=== PATIENT | female | born 2000 | race Caucasian/White ===

== ENCOUNTER 2022-11-29 20:53 | Observation (INO) | payer MEDICAID ==
[~2022-11-29] VITALS: Ht 157.5 cm; Wt 68.0 kg
== END 2022-11-29 22:30 | disposition home or self-care (01) ==
LOC: SPU 20:53
PROVIDERS: ADMIT Obstetrics & Gynecology; ATTEND Obstetrics & Gynecology
DX: O62.9 Abnormality of forces of labor, unspecified (principal); Z3A.37 37 weeks gestation of pregnancy
CPT/HCPCS: 81002; G0378

== ENCOUNTER 2022-12-18 11:51 | Inpatient (IN) | payer MEDICAID ==
[~2022-12-18] VITALS: Ht 157.5 cm; Wt 68.9 kg
[2022-12-18] MEDS ORDERED: OXYTOCIN/0.9 % SODIUM CHLORIDE 1,000 ML IV SCH (16:45)
[2022-12-18] MEDS ORDERED: TERBUTALINE SULFATE 1 MG/ML VIAL SUBCUT ONE (16:45)
[2022-12-18] MEDS ORDERED: LR 1,000 ML IV SCH (16:45)
[2022-12-18] MEDS ORDERED: NALBUPHINE HCL 10 MG/ML AMP IVP PRN (16:45)
[2022-12-18 16:54] VITALS: BP_SYST 111
[2022-12-18 17:22] LABS: BASOPHILS % (AUTO) 0.3 % (0.0-2.0); EOSINOPHILS # (AUTO) 0.3 K/uL (0.0-0.4); EOSINOPHILS % (AUTO) 3.9 % (0.0-4.0); HEMATOCRIT 36.6 % (36-48); HEMOGLOBIN 12.2 g/dL (12.0-16.0); LYMPHOCYTES # (AUTO) 1.8 K/uL (1.0-5.5); LYMPHOCYTES % (AUTO) 20.6 % (20.5-51.5); MEAN CORPUSCULAR HEMOGLOBIN 33 pg (27-31); MEAN CORPUSCULAR HGB CONC 34 % (32-36); MEAN CORPUSCULAR VOLUME 98 fL (79.0-98.0); MONOCYTES # (AUTO) 0.7 K/uL (0.0-1.0); MONOCYTES % (AUTO) 7.7 % (1.7-9.3); NEUTROPHILS % (AUTO) 67.5 % (40.0-70.0); PLATELET COUNT (AUTO) 159 K/uL (130-430); RED BLOOD CELL COUNT(AUTO) 3.72 MIL/uL (4.2-6.2); RED CELL DISTRIBUTION WIDTH 14.3 % (9.0-15.0); WHITE BLOOD COUNT (AUTO) 8.9 K/uL (4.8-10.8)
[2022-12-18] MEDS ORDERED: CALCIUM CARBONATE 500 MG/ TAB.CHEW PO PRN (21:30)
[2022-12-19] MEDS ORDERED: ACETAMINOPHEN 325 MG TABLET PO PRN
[2022-12-19] MEDS ORDERED: fentaNYL CITRATE/PF 100 MCG/2 ML AMP ONE (20:49)
[2022-12-19] MEDS ORDERED: ROPIVACAINE HCL/PF 0.2% 200 ML ONE (20:50)
[2022-12-19] MEDS ORDERED: ONDANSETRON HCL 4 MG/2 ML VIAL ONE (21:25)
[2022-12-19] MEDS ORDERED: ONDANSETRON HCL 4 MG/2 ML VIAL IVP PRN (22:15)
[2022-12-19] MEDS ORDERED: FENT2mCg/mL-ROPIVA0.2%/NS EPID 200 ML EP SCH (22:15)
[2022-12-20] MEDS ORDERED: OXYTOCIN 10 UNIT/ML VIAL ONE ×2 (05:42→08:55)
[2022-12-20] MEDS ORDERED: OXYTOCIN 10 UNIT/ML VIAL IM ONE (05:45)
[2022-12-20] MEDS ORDERED: CEFAZOLIN 2 GM IVPB PREMIX 50 ML IV ONE ×2 (08:30→08:55)
[2022-12-20] MEDS ORDERED: MORPHINE SULFATE 10MG/10ML PF AMP ONE (08:55)
[2022-12-20] MEDS ORDERED: NS IRRIG SOLN 1000 ML IR ONE (08:55)
[2022-12-20] MEDS ORDERED: METOCLOPRAMIDE HCL 10 MG/2 ML VIAL ONE (08:55)
[2022-12-20] MEDS ORDERED: LR 1,000 ML IV.SOLN IV ONE (08:55)
[2022-12-20] MEDS ORDERED: ONDANSETRON HCL 4 MG/2 ML VIAL ONE (08:55)
[2022-12-20] MEDS ORDERED: BUPIVACAINE /PF 0.75% 10 ML VIAL INJ ONE (08:55)
[2022-12-20] MEDS ORDERED: METHYLERGONOVINE MALEATE 0.2 MG/ML AMP ONE (09:19)
[2022-12-20] MEDS ORDERED: NALOXONE HCL 0.4 MG/ML AMP (NARCAN) IVP PRN ×2 (09:30→13:00)
[2022-12-20] MEDS ORDERED: ONDANSETRON HCL 4 MG/2 ML VIAL IVP PRN (09:30)
[2022-12-20] MEDS ORDERED: MORPHINE SULFATE 10MG/10ML PF AMP SP SCH (09:30)
[2022-12-20] MEDS ORDERED: ACETAMINOPHEN I.V. 1000 MG 100 ML IV PRN (09:30)
[2022-12-20 10:00] VITALS: BP_SYST 138
[2022-12-20] MEDS ORDERED: LABETALOL HCL 20 MG/4 ML CARTRIDGE IVP ONE ×3 (11:00→11:45)
[2022-12-20] MEDS ORDERED: LR 1,000 ML IV SCH (12:45)
[2022-12-20] MEDS ORDERED: DIPHTH,PERTUSS(ACELL),TET VAC 0.5 ML VIAL (Tdap) I.M. PRN (12:45)
[2022-12-20] MEDS ORDERED: OXYTOCIN/0.9 % SODIUM CHLORIDE 1,000 ML IV ONE (12:45)
[2022-12-20] MEDS ORDERED: BISACODYL 10 MG/SUPPOSITORY RC PRN (12:45)
[2022-12-20] MEDS ORDERED: LANOLIN 7 GM OINT. TP PRN (12:45)
[2022-12-20] MEDS ORDERED: HYDROcodone/ACETAMIN 5-325 MG TAB (NORCO/ VICODIN) PO PRN (13:00)
[2022-12-20] MEDS: CEFAZOLIN 1 GM IVPB PREMIX 50 ML IV SCH ×2 (16:12→22:15)
[2022-12-20] MEDS: IBUPROFEN 600 MG TABLET PO SCH (18:12)
[2022-12-20] MEDS: KETOROLAC TROMETHAMINE 30 MG VIAL IVP PRN (23:37)
[2022-12-21] MEDS: CEFAZOLIN 1 GM IVPB PREMIX 50 ML IV SCH (04:09)
[2022-12-21] MEDS: KETOROLAC TROMETHAMINE 30 MG VIAL IVP PRN (05:39)
[2022-12-21 07:20] LABS: BASOPHILS % (AUTO) 0.2 % (0.0-2.0); EOSINOPHILS # (AUTO) 0.1 K/uL (0.0-0.4); EOSINOPHILS % (AUTO) 0.5 % (0.0-4.0); HEMATOCRIT 31.3 % (36-48); HEMOGLOBIN 10.5 g/dL (12.0-16.0); LYMPHOCYTES # (AUTO) 1.3 K/uL (1.0-5.5); LYMPHOCYTES % (AUTO) 10.7 % (20.5-51.5); MEAN CORPUSCULAR HEMOGLOBIN 33 pg (27-31); MEAN CORPUSCULAR HGB CONC 33 % (32-36); MEAN CORPUSCULAR VOLUME 98 fL (79.0-98.0); MONOCYTES # (AUTO) 0.9 K/uL (0.0-1.0); NEUTROPHILS % (AUTO) 81.6 % (40.0-70.0); PLATELET COUNT (AUTO) 138 K/uL (130-430); RED BLOOD CELL COUNT(AUTO) 3.19 MIL/uL (4.2-6.2); RED CELL DISTRIBUTION WIDTH 14.1 % (9.0-15.0); WHITE BLOOD COUNT (AUTO) 12.3 K/uL (4.8-10.8)
[2022-12-21] MEDS: SIMETHICONE 80 MG TAB.CHEW PO PRN ×2 (09:51→18:32)
[2022-12-21] MEDS: DOCUSATE SODIUM 100 MG CAPSULE PO SCH ×2 (09:51→21:09)
[2022-12-21] MEDS: OXYCODONE/ACETAMINOPHEN 5-325 TABLET PO PRN ×2 (09:52→19:16)
[2022-12-21] MEDS: IBUPROFEN 600 MG TABLET PO SCH ×2 (12:47→18:32)
[2022-12-22] MEDS: IBUPROFEN 600 MG TABLET PO SCH ×3 (00:35→20:27)
[2022-12-22] MEDS: OXYCODONE/ACETAMINOPHEN 5-325 TABLET PO PRN ×2 (07:51→15:52)
[2022-12-22] MEDS: SIMETHICONE 80 MG TAB.CHEW PO PRN ×4 (07:51→23:19)
[2022-12-22] MEDS: DOCUSATE SODIUM 100 MG CAPSULE PO SCH ×2 (09:32→23:18)
[2022-12-22 20:06] LABS: FTA-Ab (T PALLIDUM) Non Reactive (Non Reactive)
[2022-12-22] MEDS: SENNOSIDES/DOCUSATE SODIUM 1 TAB TABLET(SENOKOT-S) PO SCH (23:18)
[2022-12-23] MEDS: OXYCODONE/ACETAMINOPHEN 5-325 TABLET PO PRN ×3 (03:47→21:00)
[2022-12-23] MEDS: SIMETHICONE 80 MG TAB.CHEW PO PRN ×3 (03:47→20:59)
[2022-12-23] MEDS: IBUPROFEN 600 MG TABLET PO SCH ×3 (06:35→18:23)
[2022-12-23] MEDS: DOCUSATE SODIUM 100 MG CAPSULE PO SCH (09:52)
[2022-12-23] MEDS: SENNOSIDES/DOCUSATE SODIUM 1 TAB TABLET(SENOKOT-S) PO SCH (21:00)
[2022-12-24] MEDS: IBUPROFEN 600 MG TABLET PO SCH ×3 (00:38→11:45)
[2022-12-24] MEDS: OXYCODONE/ACETAMINOPHEN 5-325 TABLET PO PRN (00:45)
[2022-12-24] MEDS: SIMETHICONE 80 MG TAB.CHEW PO PRN (06:17)
[2022-12-24] MEDS: DOCUSATE SODIUM 100 MG CAPSULE PO SCH (09:02)
== END 2022-12-24 12:15 | disposition home or self-care (01) | DRG 540 ==
LOC: SPU 15:34
PROVIDERS: ADMIT Obstetrics & Gynecology; ATTEND Obstetrics & Gynecology
PROC: 10D00Z1 Extraction of Products of Conception, Low, Open Approach (ICD-10-PCS; principal; 2022-12-20 08:55)
DX: O62.1 Secondary uterine inertia (principal); O61.9 Failed induction of labor, unspecified; O64.8XX0 Obstructed labor due to other malposition and malpresentation, not applicable or unspecified; O77.0 Labor and delivery complicated by meconium in amniotic fluid; Z37.0 Single live birth; Z3A.39 39 weeks gestation of pregnancy; Z20.822 Contact with and (suspected) exposure to COVID-19
CPT/HCPCS: 36415; 81002; 85025; 86592; 86780; 86886; 86900; 86901; 94760; J0690; J1885; J2210; J2274; J2300; J2405; J2590; J2765; J3010; J3490; J7120